=== PATIENT | female | born 1995 | race Asian ===

== ENCOUNTER 2023-07-24 16:22 | Outpatient (CLI) | payer OTHER ==
[~2023-07-24] VITALS: Ht 152.4 cm; Wt 71.9 kg
[2023-07-24] MEDS ORDERED: UNIS25TA5 PO (16:53)
[2023-07-24] MEDS ORDERED: VITA100T14 PO (16:53)
[2023-07-24] MEDS ORDERED: PRENTAB9 PO ×2 (16:53)
[2023-07-24 16:54] VITALS: BP 126/69
[2023-07-24] MEDS ORDERED: HOME MED LIST COMPLETE! XX SCH (17:00)
[2023-07-24] MEDS ORDERED: ACETAMINOPHEN 500 MG TAB PO ONE (17:45)
== END 2023-07-24 18:06 | disposition home or self-care (01) ==
LOC: M LDO 16:22
PROVIDERS: ATTEND Obstetrics & Gynecology
DX: O26.892 Other specified pregnancy related conditions, second trimester (principal); M54.9 Dorsalgia, unspecified; Z3A.26 26 weeks gestation of pregnancy
CPT/HCPCS: 59025; G0463

== ENCOUNTER 2023-07-25 03:44 | Outpatient (CLI) | payer OTHER ==
[2023-07-25] VITALS (17 sets, daily range): BP systolic 127–151; BP diastolic 75–88; TEMP 98.7; O2SAT 99
[~2023-07-25] VITALS: Ht 154.9 cm; Wt 71.3 kg
[~2023-07-25 03:44] MED LIST: PRENTAB9 PO; UNIS25TA5 PO; VITA100T14 PO
[2023-07-25] MEDS ORDERED: ACETAMINOPHEN 500 MG TAB PO ONE (04:15)
[2023-07-25 05:15] LABS: HEMATOCRIT 35.1 % (36.0-47.0); HEMOGLOBIN 11.8 g/dl (12.0-15.5); MEAN CORPUSCULAR HEMOGLOBIN 32.2 pg (27.0-33.0); MEAN CORPUSCULAR HGB CONC 33.6 g/dl (32.0-36.5); MEAN CORPUSCULAR VOLUME 95.6 fl (80.0-96.0); PLATELET COUNT, AUTOMATED 201 10^3/uL (150-450); RED BLOOD COUNT 3.67 10^6/uL (4.00-5.40); WHITE BLOOD COUNT 9.5 10^3/uL (4.0-10.0)
[2023-07-25 05:36] LABS: LIPASE 43 U/L (12-53)
[2023-07-25 05:37] LABS: AMYLASE 126 U/L (30-118)
[2023-07-25] MEDS ORDERED: MORPHINE 4 MG/ML 1ML VIAL As Ordered ONE (06:21)
[2023-07-25] MEDS ORDERED: MORPHINE 4 MG/ML 1ML VIAL IV ONE (06:40)
[2023-07-25] MEDS ORDERED: LR 1,000 ML IV SCH (07:20)
[2023-07-25] MEDS ORDERED: LR 1,000 ML IV ONE (07:20)
[2023-07-25] MEDS ORDERED: MORPHINE 2 MG/ML 1ML VIAL IV ONE (08:25)
== END 2023-07-25 10:55 | disposition other institution (70) ==
LOC: M LDO 03:44
PROVIDERS: ATTEND Obstetrics & Gynecology
DX: O26.893 Other specified pregnancy related conditions, third trimester (principal); R10.9 Unspecified abdominal pain; Z3A.27 27 weeks gestation of pregnancy; Z79.899 Other long term (current) drug therapy
CPT/HCPCS: 59025; 74181; 76705; 82150; 83690; 85027; 86850; 86900; 86901; 86920; 87635; 96374; 96376; G0463

== ENCOUNTER → 2024-03-28 | Outpatient (CLI) | payer OTHER ==
[~2024-03-28] MED LIST changes: +ISOVUE-370 76% 100ML VIAL As Ordered ONE
== END ==
LOC: M RAD 07:56
PROVIDERS: ATTEND Family Medicine
DX: N28.89 Other specified disorders of kidney and ureter (principal); K76.89 Other specified diseases of liver; N28.1 Cyst of kidney, acquired
CPT/HCPCS: 74177; Q9967

== ENCOUNTER → 2025-02-21 | Outpatient (CLI) | payer OTHER ==
[~2025-02-21] MED LIST changes: +GADOXETATE DISODIUM 2.5 MMOL/10 ML VIAL ONE; -ISOVUE-370 76% 100ML VIAL As Ordered ONE
== END ==
LOC: M PLAIMG 13:08
PROVIDERS: ATTEND Internal Medicine Gastroenterology
DX: K76.89 Other specified diseases of liver (principal)

== ENCOUNTER 2025-03-07 20:26 | Emergency (ER) | payer OTHER ==
[~2025-03-07] VITALS: Ht 162.6 cm; Wt 59.5 kg
[~2025-03-07 20:26] MED LIST changes: -GADOXETATE DISODIUM 2.5 MMOL/10 ML VIAL ONE
[2025-03-07 20:32] VITALS: TEMP 98
[2025-03-07 22:57] LABS: BASO # 0.0 10^3/uL (0.0-0.2); BASO % 0.3 % (0.0-1.0); EOS # 0.0 10^3/uL (0.0-0.5); EOS % 0.4 % (0.0-3.0); LYMPH # 2.2 10^3/uL (1.5-5.0); LYMPH % 30.9 % (24.0-44.0); MONO # 0.5 10^3/uL (0.0-0.8); MONO % 6.8 % (2.0-8.0); NEUTROPHILS # 4.3 10^3/uL (1.5-8.5); NEUTROPHILS % 61.5 % (36.0-66.0); PLATELET COUNT, AUTOMATED 247 10^3/uL (150-450)
[2025-03-07 23:20] LABS: ALT/SGPT 14.0 U/L (7.0-40); AST/SGOT 18.0 U/L (<34)
[2025-03-07] MEDS ORDERED: ISOVUE-370 76% 100 ML VIAL As Ordered ONE (23:35)
[2025-03-08] MEDS: KETOROLAC 30 MG/ML 1 ML VIAL IV ONE (00:22)
[2025-03-08] MEDS ORDERED: oxyCODONE 10 MG CR TAB PO ONE (02:30)
[2025-03-08] MEDS ORDERED: OXYC-141 PO (02:44)
[2025-03-08] MEDS: oxyCODONE 10 MG CR TAB PO ONE (03:15)
[2025-03-08 03:18] VITALS: BP 114/77; O2SAT 97
== END 2025-03-08 03:20 | disposition home or self-care (01) ==
LOC: M ED 20:26
DX: S61.012A Laceration without foreign body of left thumb without damage to nail, initial encounter (principal); Y92.9 Unspecified place or not applicable; Y93.9 Activity, unspecified; Y99.9 Unspecified external cause status; J45.909 Unspecified asthma, uncomplicated; G90.A Postural orthostatic tachycardia syndrome [POTS]; Z79.899 Other long term (current) drug therapy; Z79.810 Long term (current) use of selective estrogen receptor modulators (SERMs)
CPT/HCPCS: 12002; 74177; 80047; 80076; 85025; 96374; 99284; J1885; Q9967